=== PATIENT | female | born 1950 | race Caucasian/White ===

== ENCOUNTER 2024-01-10 05:31 | Day surgery (SDC) | payer MEDICARE, OTHER ==
[2024-01-04 15:04] LABS: BASOPHILS # (AUTO) 0.1 X10'3 (0-0.2); BASOPHILS % (AUTO) 1.1 % (0-1); EOSINOPHILS # (AUTO) 0.1 X10'3 (0-0.9); EOSINOPHILS % (AUTO) 1.4 % (0-6); LYMPHOCYTES # (AUTO) 2.1 X10'3 (1.1-4.8); LYMPHOCYTES % (AUTO) 24.9 % (21-51); MEAN CORPUSCULAR HEMOGLOBIN 33.2 PG (27.0-31.0); MEAN CORPUSCULAR HGB CONC 34.6 g/dL (33.0-36.5); MEAN PLATELET VOLUME 9.1 FL (7.4-10.4); MONOCYTES # (AUTO) 0.7 X10'3 (0-0.9); MONOCYTES % (AUTO) 8.1 % (2-12); NEUTROPHILS # (AUTO) 5.6 X10'3 (1.8-7.7); NEUTROPHILS % (AUTO) 64.5 % (42-75); PRE OP HEMATOCRIT 44.8 % (35.0-45.0); PRE OP HEMOGLOBIN 15.5 g/dL (12.0-16.0); PRE OP PLATELET COUNT 232 X10'3 (140-440); PRE OP WHITE BLOOD COUNT 8.6 10'3 (4.8-10.8); RED BLOOD COUNT 4.67 X10'6 (4.20-5.60); RED CELL DISTRIBUTION WIDTH 12.6 % (11.5-14.5)
[2024-01-04 15:21] LABS: ALBUMIN 3.6 G/DL (3.4-5.0); ALKALINE PHOSPHATASE 62 IU/L (46-116); BLOOD UREA NITROGEN 14 MG/DL (7-18); BUN/CREATININE RATIO 14.1 (10.0-20.0); CALCIUM 9.2 MG/DL (8.5-10.1); CHLORIDE 106 MMOL/L (99-107); CREATININE 0.99 MG/DL (0.40-0.90); PRE OP ALT 45 U/L (30-65); PRE OP ANION GAP 6 (8-16); PRE OP AST 24 U/L (10-37); PRE OP BILIRUB, TOTAL 2.1 MG/DL (0.0-1.0); PRE OP SODIUM 140 MMOL/L (135-145); TOTAL CARBON DIOXIDE 27.9 MMOL/L (24-32); TOTAL PROTEIN 7.2 G/DL (6.4-8.2); eGFR 55 ML/MIN
[2024-01-04 15:24] LABS: PRE OP GLUCOSE 234 MG/DL (70-104)
[2024-01-10] VITALS (7 sets, daily range): BP systolic 132–153; BP diastolic 67–92; PULSE 64–70; RESP 12–15; TEMP 98.4; O2SAT 93–98
[~2024-01-10] VITALS: Ht 167.6 cm; Wt 105.0 kg
[~2024-01-10 05:31] MED LIST: ATOR40TA72 PO; GLIM2TAB6 PO; HYDR25TA5 PO; INSU200I4 SQ; LEVO100T9 PO; LOSA50TA64 PO; METF-438 PO; NITR0.3T10 SL; ringers solution, lacted 1,000 ML IV SCH
[2024-01-10] MEDS: cefazolin 2gm/D5W 100mL 100 ML IV ONE (06:00)
[2024-01-10] MEDS: famotidine 20mg tablet PO ONE (06:29)
[2024-01-10] MEDS ORDERED: LIDOcaine 2% (20mg/ml) 5ml vial ONE ×2 (07:02→08:49)
[2024-01-10] MEDS ORDERED: proCHLORperazine 10 MG/2 ml inj IV PRN (07:35)
[2024-01-10] MEDS ORDERED: ringers solution, lacted 1,000 ML IV SCH (07:35)
[2024-01-10] MEDS ORDERED: ondansetron/PF 4mg/2ml inj IV PRN (07:35)
[2024-01-10] MEDS ORDERED: fentaNYL/PF 50MCG/1 ML 2ML syringe IV PRN ×2 (07:35)
[2024-01-10] MEDS ORDERED: fentaNYL/PF 50MCG/1 ML 2ML syringe ONE (08:27)
[2024-01-10] MEDS ORDERED: midazolam 1 mg/ML 2ml injection ONE (08:28)
[2024-01-10] MEDS ORDERED: ondansetron/PF 4mg/2ml inj ONE (08:41)
[2024-01-10] MEDS ORDERED: propofol inj 20 ML IV ONE (08:41)
[2024-01-10] MEDS: BUPIVAcaine/PF 2.5mg/ml (0.25%) 10ml vial ONE (08:44)
[2024-01-10] MEDS: LIDOcaine 2% (20mg/ml) 5ml vial SQ ONE (08:45)
[2024-01-10] MEDS ORDERED: BUPIVAcaine/PF 2.5mg/ml (0.25%) 10ml vial ONE (08:49)
== END 2024-01-10 09:33 | disposition home or self-care (01) ==
LOC: PAS 05:31
PROVIDERS: ATTEND Orthopaedic Surgery Hand Surgery
DX: M65.311 Trigger thumb, right thumb (principal); I10 Essential (primary) hypertension; Z79.899 Other long term (current) drug therapy; Z98.890 Other specified postprocedural states; E03.9 Hypothyroidism, unspecified; G62.9 Polyneuropathy, unspecified; Z88.6 Allergy status to analgesic agent
CPT/HCPCS: 26055; 36415; 80053; 82948; 85025; J0690; J2250; J2405; J2704; J3010; J3490; J7030; J7120; Z7506; Z7512; A4215; A6449